=== PATIENT | male | born 1995 | race Caucasian/White ===

== ENCOUNTER 2024-10-09 20:07 | Inpatient (IN) | payer MEDICAID ==
[~2024-10-09] VITALS: Ht 190.5 cm; Wt 108.0 kg
[2024-10-09 20:34] LABS: BASOPHILS # (AUTO) 0.1 X10'3 (0-0.2); BASOPHILS % (AUTO) 0.9 % (0-1); EOSINOPHILS # (AUTO) 0.2 X10'3 (0-0.9); EOSINOPHILS % (AUTO) 1.5 % (0-6); HEMATOCRIT 25.2 % (42.0-52.0); HEMOGLOBIN 8.4 g/dl (14.0-17.9); LYMPHOCYTES # (AUTO) 0.8 X10'3 (1.1-4.8); LYMPHOCYTES % (AUTO) 7.4 % (21-51); MEAN CORPUSCULAR HEMOGLOBIN 28.4 PG (27.0-31.0); MEAN CORPUSCULAR HGB CONC 33.2 g/dL (33.0-36.5); MEAN CORPUSCULAR VOLUME 85.6 FL (78-98); MEAN PLATELET VOLUME 8.5 FL (7.4-10.4); MONOCYTES # (AUTO) 0.6 X10'3 (0-0.9); MONOCYTES % (AUTO) 5.9 % (2-12); NEUTROPHILS # (AUTO) 8.5 X10'3 (1.8-7.7); NEUTROPHILS % (AUTO) 84.3 % (42-75); PLATELET COUNT 260 X10'3 (140-440); RED BLOOD COUNT 2.95 X10'6 (4.70-6.10); RED CELL DISTRIBUTION WIDTH 17.3 % (11.5-14.5); WHITE BLOOD COUNT 10.1 X10'3 (4.5-11.0)
[2024-10-09 20:46] LABS: APTT 31 SECONDS (22-32); INR 1.2 INR; PROTHROMBIN TIME 12.2 SECONDS (9.0-12.0)
[2024-10-09 20:56] LABS: ALANINE AMINOTRANSFERASE 21 U/L (12-78); ALBUMIN 2.5 G/DL (3.4-5.0); ALBUMIN/GLOBULIN RATIO 0.6 (1.1-1.5); ALKALINE PHOSPHATASE 81 IU/L (46-116); ANION GAP 19 (8-16); ASPARTATE AMINO TRANSFERASE 11 U/L (10-37); BILIRUBIN,TOTAL 0.7 MG/DL (0.1-1.0); CALCIUM 9.1 MG/DL (8.5-10.1); CHLORIDE 97 MMOL/L (99-107); GLUCOSE 83 MG/DL (70-104); MAGNESIUM 2.1 MG/DL (1.5-2.4); SODIUM 137 MMOL/L (135-145); TOTAL CARBON DIOXIDE 21.2 MMOL/L (24-32); TOTAL PROTEIN 6.7 G/DL (6.4-8.2)
[2024-10-09] MEDS: dextrose 50%-water 50ml dispensing syringe IV ONE (21:06)
[2024-10-09] MEDS: calcium chloride 100 MG/1 ML inj IV ONE (21:06)
[2024-10-09] MEDS: insulin regular, human 10 units/0.1 ml syringe IV ONE (21:10)
[2024-10-09] MEDS: SODIUM ZIRCONIUM CYCLOSILICATE 10 GM POWD.PACK PO SCH (21:15)
[2024-10-09 21:17] LABS: POTASSIUM 6.2 MMOL/L (3.5-5.1)
[2024-10-09] MEDS: furosemide 40mg/4ml inj IV SCH (21:21)
[2024-10-09 21:34] LABS: BLOOD UREA NITROGEN 180 MG/DL (7-18); CREATININE 20.04 MG/DL (0.60-1.10); eCRCL 6 ML/MIN; eGFR 3 ML/MIN
[2024-10-09 21:50] LABS: PRO BRAIN NATRIURETIC PEPTIDE > 30000 PG/ML (0-125)
[2024-10-09 22:26] VITALS: PULSE 126; RESP 16; O2SAT 100
[2024-10-09] MEDS: albuterol 2.5 MG/3 ML nebule NEB ONE (22:26)
[2024-10-09 22:44] VITALS: PULSE 126; RESP 20; O2SAT 100
[2024-10-09] MEDS ORDERED: acetaminophen 325mg tablet PO PRN (23:05)
[2024-10-09] MEDS: heparin 1,000 units/ml 10ml inj IV ONE (23:34)
[2024-10-09] MEDS: heparin 1,000unit/ml 10ml vial 10 ML IV ONE (23:34)
[2024-10-09] MEDS: labetalol 100mg tablet PO STA (23:50)
[2024-10-10] VITALS (18 sets, daily range): BP systolic 135–210; BP diastolic 69–128; PULSE 106–123; RESP 12–31; TEMP 97.5–99.1; O2SAT 93–100
[2024-10-10] MEDS ORDERED: HYDR25TA90 PO ×2 (00:01)
[2024-10-10] MEDS ORDERED: LOSA-415 PO (00:06)
[2024-10-10] MEDS ORDERED: NIFE-128 PO (00:06)
[2024-10-10] MEDS ORDERED: CALC667T8 PO (00:06)
[2024-10-10] MEDS ORDERED: LABE100T8 PO (00:06)
[2024-10-10] MEDS ORDERED: CALC0.2536 PO (00:06)
[2024-10-10] MEDS ORDERED: CLON1PAT41 (00:07)
[2024-10-10] MEDS: labetalol 20mg/4ml (5mg/ml) syringe IV ONE (01:54)
[2024-10-10] MEDS: LIDOcaine 1% (10mg/ml) 2ml vial SQ ONE (04:56)
[2024-10-10] MEDS: heparin 1,000unit/ml 10ml vial 10 ML IV ONE (07:20)
[2024-10-10] MEDS: heparin 1,000 units/ml 10ml inj IV ONE (07:23)
[2024-10-10] MEDS ORDERED: labetalol 100mg tablet PO SCH (08:00)
[2024-10-10] MEDS: heparin, porcine 5000 units/ml vial SQ SCH (09:01)
[2024-10-10] MEDS: nicotine 14mg patch - 24hr TD SCH (09:02)
[2024-10-10 11:34] LABS: ALANINE AMINOTRANSFERASE 16 U/L (12-78); ALBUMIN 2.2 G/DL (3.4-5.0); ALBUMIN/GLOBULIN RATIO 0.6 (1.1-1.5); ALKALINE PHOSPHATASE 71 IU/L (46-116); ANION GAP 14 (8-16); ASPARTATE AMINO TRANSFERASE 9 U/L (10-37); BILIRUBIN,TOTAL 0.9 MG/DL (0.1-1.0); BLOOD UREA NITROGEN 110 MG/DL (7-18); BUN/CREATININE RATIO 7.9 (10.0-20.0); CALCIUM 8.8 MG/DL (8.5-10.1); CHLORIDE 100 MMOL/L (99-107); CREATININE 13.98 MG/DL (0.60-1.10); GLUCOSE 115 MG/DL (70-104); MAGNESIUM 1.9 MG/DL (1.5-2.4); PHOSPHORUS 6.9 MG/DL (2.3-4.5); POTASSIUM 4.6 MMOL/L (3.5-5.1); SODIUM 137 MMOL/L (135-145); TOTAL CARBON DIOXIDE 23.1 MMOL/L (24-32); eCRCL 9 ML/MIN; eGFR 4 ML/MIN
[2024-10-10 11:50] LABS: % IRON SATURATION 20 % (11-46); IRON 34 UG/DL (53-167); TOTAL IRON BINDING CAPACITY 170 UG/DL (259-388)
[2024-10-10 12:24] LABS: BASOPHILS # (AUTO) 0.1 X10'3 (0-0.2); EOSINOPHILS # (AUTO) 0.2 X10'3 (0-0.9); EOSINOPHILS % (AUTO) 2.8 % (0-6); LYMPHOCYTES # (AUTO) 0.7 X10'3 (1.1-4.8); LYMPHOCYTES % (AUTO) 9.9 % (21-51); MEAN CORPUSCULAR HEMOGLOBIN 28.2 PG (27.0-31.0); MEAN CORPUSCULAR VOLUME 85.6 FL (78-98); MEAN PLATELET VOLUME 8.1 FL (7.4-10.4); MONOCYTES # (AUTO) 0.4 X10'3 (0-0.9); MONOCYTES % (AUTO) 6.1 % (2-12); NEUTROPHILS # (AUTO) 5.3 X10'3 (1.8-7.7); NEUTROPHILS % (AUTO) 80.2 % (42-75); PLATELET COUNT 217 X10'3 (140-440); RED BLOOD COUNT 2.45 X10'6 (4.70-6.10); RED CELL DISTRIBUTION WIDTH 17.5 % (11.5-14.5); WHITE BLOOD COUNT 6.6 X10'3 (4.5-11.0)
[2024-10-10 12:35] LABS: HEMATOCRIT 20.9 % (42.0-52.0); HEMOGLOBIN 6.9 g/dl (14.0-17.9)
[2024-10-10] MEDS: ondansetron/PF 4mg/2ml inj IV PRN (13:57)
[2024-10-10] MEDS: NUT.TX.IMP.RENAL FXN,LAC-REDUC (Nepro) 237 ML VANILLA PO SCH (17:41)
[2024-10-10] MEDS: hydrALAZINE 20mg/ml inj. IV PRN (18:47)
[2024-10-11] VITALS (12 sets, daily range): BP systolic 115–185; BP diastolic 57–114; PULSE 98–110; RESP 16–27; TEMP 97.5–98.5; O2SAT 95–100
[2024-10-11] MEDS: labetalol 100mg tablet PO ONE (00:33)
[2024-10-11] MEDS: HALLS - SOOTHE MENTHOL 1.8 MG cough drop LOZENGE MM PRN (00:59)
[2024-10-11 07:48] LABS: BASOPHILS # (AUTO) 0.1 X10'3 (0-0.2); BASOPHILS % (AUTO) 0.8 % (0-1); EOSINOPHILS # (AUTO) 0.2 X10'3 (0-0.9); EOSINOPHILS % (AUTO) 2.3 % (0-6); LYMPHOCYTES # (AUTO) 0.8 X10'3 (1.1-4.8); LYMPHOCYTES % (AUTO) 11.2 % (21-51); MEAN CORPUSCULAR HEMOGLOBIN 28.5 PG (27.0-31.0); MEAN CORPUSCULAR HGB CONC 33.3 g/dL (33.0-36.5); MEAN CORPUSCULAR VOLUME 85.4 FL (78-98); MEAN PLATELET VOLUME 8.8 FL (7.4-10.4); MONOCYTES # (AUTO) 0.5 X10'3 (0-0.9); MONOCYTES % (AUTO) 6.5 % (2-12); NEUTROPHILS # (AUTO) 5.7 X10'3 (1.8-7.7); NEUTROPHILS % (AUTO) 79.2 % (42-75); PLATELET COUNT 230 X10'3 (140-440); RED CELL DISTRIBUTION WIDTH 17.5 % (11.5-14.5); WHITE BLOOD COUNT 7.2 X10'3 (4.5-11.0)
[2024-10-11] MEDS ORDERED: albumin (human) 25% 100ml IV 100 ML IV PRN (08:00)
[2024-10-11 08:06] LABS: ALANINE AMINOTRANSFERASE 14 U/L (12-78); ALBUMIN 2.2 G/DL (3.4-5.0); ALBUMIN/GLOBULIN RATIO 0.6 (1.1-1.5); ALKALINE PHOSPHATASE 65 IU/L (46-116); ANION GAP 15 (8-16); ASPARTATE AMINO TRANSFERASE 16 U/L (10-37); BILIRUBIN,TOTAL 0.9 MG/DL (0.1-1.0); BLOOD UREA NITROGEN 117 MG/DL (7-18); BUN/CREATININE RATIO 7.7 (10.0-20.0); CALCIUM 8.3 MG/DL (8.5-10.1); CHLORIDE 99 MMOL/L (99-107); CREATININE 15.11 MG/DL (0.60-1.10); GLUCOSE 95 MG/DL (70-104); MAGNESIUM 1.8 MG/DL (1.5-2.4); PHOSPHORUS 8.4 MG/DL (2.3-4.5); POTASSIUM 5.3 MMOL/L (3.5-5.1); SODIUM 136 MMOL/L (135-145); TOTAL CARBON DIOXIDE 21.7 MMOL/L (24-32); TOTAL PROTEIN 5.8 G/DL (6.4-8.2); eCRCL 9 ML/MIN; eGFR 4 ML/MIN
[2024-10-11 08:17] LABS: HEMATOCRIT 20.4 % (42.0-52.0); HEMOGLOBIN 6.8 g/dl (14.0-17.9)
[2024-10-11] MEDS: NIFEdipine XL 30mg tablet PO SCH (08:22)
[2024-10-11] MEDS: labetalol 100mg tablet PO SCH (08:23)
[2024-10-11] MEDS: LIDOcaine 1% (10mg/ml) 2ml vial SQ ONE ×2 (13:30)
[2024-10-11] MEDS: heparin 1,000unit/ml 10ml vial 10 ML IV ONE (14:11)
[2024-10-11] MEDS: heparin 1,000 units/ml 10ml inj IV ONE (14:12)
[2024-10-11] MEDS: EPOETIN ALFA-EPBX 20,000 UNIT/ML 1 ML MDV IV ONE (14:13)
[2024-10-12] VITALS (7 sets, daily range): BP systolic 118–150; BP diastolic 70–95; PULSE 71–105; RESP 16–20; TEMP 97.6–98.3; O2SAT 97–100
[2024-10-12 05:28] LABS: HBSAG SCREEN Negative (Negative)
[2024-10-12 07:18] LABS: BASOPHILS # (AUTO) 0.1 X10'3 (0-0.2); EOSINOPHILS # (AUTO) 0.2 X10'3 (0-0.9); EOSINOPHILS % (AUTO) 2.1 % (0-6); HEMATOCRIT 23.4 % (42.0-52.0); HEMOGLOBIN 7.7 g/dl (14.0-17.9); LYMPHOCYTES # (AUTO) 0.9 X10'3 (1.1-4.8); LYMPHOCYTES % (AUTO) 11.5 % (21-51); MEAN CORPUSCULAR HEMOGLOBIN 28.4 PG (27.0-31.0); MEAN CORPUSCULAR VOLUME 86.2 FL (78-98); MEAN PLATELET VOLUME 8.7 FL (7.4-10.4); MONOCYTES # (AUTO) 0.5 X10'3 (0-0.9); NEUTROPHILS % (AUTO) 78.4 % (42-75); PLATELET COUNT 234 X10'3 (140-440); RED BLOOD COUNT 2.72 X10'6 (4.70-6.10); RED CELL DISTRIBUTION WIDTH 17.7 % (11.5-14.5); WHITE BLOOD COUNT 7.7 X10'3 (4.5-11.0)
[2024-10-12 08:04] LABS: ALANINE AMINOTRANSFERASE 13 U/L (12-78); ALBUMIN/GLOBULIN RATIO 0.5 (1.1-1.5); ALKALINE PHOSPHATASE 64 IU/L (46-116); ANION GAP 12 (8-16); ASPARTATE AMINO TRANSFERASE 16 U/L (10-37); BILIRUBIN,TOTAL 0.7 MG/DL (0.1-1.0); BLOOD UREA NITROGEN 80 MG/DL (7-18); BUN/CREATININE RATIO 7.1 (10.0-20.0); CALCIUM 8.1 MG/DL (8.5-10.1); CHLORIDE 101 MMOL/L (99-107); CREATININE 11.22 MG/DL (0.60-1.10); GLUCOSE 107 MG/DL (70-104); MAGNESIUM 1.8 MG/DL (1.5-2.4); PHOSPHORUS 7.1 MG/DL (2.3-4.5); POTASSIUM 5.1 MMOL/L (3.5-5.1); SODIUM 137 MMOL/L (135-145); TOTAL CARBON DIOXIDE 24.1 MMOL/L (24-32); TOTAL PROTEIN 5.7 G/DL (6.4-8.2); eCRCL 12 ML/MIN; eGFR 5 ML/MIN
[2024-10-13] VITALS (25 sets, daily range): BP systolic 114–145; BP diastolic 67–94; PULSE 0–105; RESP 15–26; TEMP 97.5–99.8; O2SAT 95–100
[2024-10-13 07:27] LABS: BASOPHILS # (AUTO) 0.1 X10'3 (0-0.2); EOSINOPHILS # (AUTO) 0.2 X10'3 (0-0.9); EOSINOPHILS % (AUTO) 2.9 % (0-6); HEMOGLOBIN 7.6 g/dl (14.0-17.9); LYMPHOCYTES # (AUTO) 0.8 X10'3 (1.1-4.8); LYMPHOCYTES % (AUTO) 11.1 % (21-51); MEAN CORPUSCULAR HEMOGLOBIN 28.7 PG (27.0-31.0); MEAN CORPUSCULAR HGB CONC 33.2 g/dL (33.0-36.5); MEAN CORPUSCULAR VOLUME 86.5 FL (78-98); MEAN PLATELET VOLUME 8.7 FL (7.4-10.4); MONOCYTES # (AUTO) 0.5 X10'3 (0-0.9); MONOCYTES % (AUTO) 6.5 % (2-12); NEUTROPHILS # (AUTO) 5.7 X10'3 (1.8-7.7); NEUTROPHILS % (AUTO) 78.5 % (42-75); PLATELET COUNT 247 X10'3 (140-440); RED BLOOD COUNT 2.65 X10'6 (4.70-6.10); RED CELL DISTRIBUTION WIDTH 17.4 % (11.5-14.5); WHITE BLOOD COUNT 7.3 X10'3 (4.5-11.0)
[2024-10-13 08:25] LABS: ALANINE AMINOTRANSFERASE 15 U/L (12-78); ALBUMIN 2.1 G/DL (3.4-5.0); ALBUMIN/GLOBULIN RATIO 0.6 (1.1-1.5); ALKALINE PHOSPHATASE 64 IU/L (46-116); ANION GAP 17 (8-16); ASPARTATE AMINO TRANSFERASE 14 U/L (10-37); BILIRUBIN,TOTAL 0.8 MG/DL (0.1-1.0); BLOOD UREA NITROGEN 86 MG/DL (7-18); BUN/CREATININE RATIO 7.1 (10.0-20.0); CALCIUM 8.2 MG/DL (8.5-10.1); CHLORIDE 99 MMOL/L (99-107); CREATININE 12.18 MG/DL (0.60-1.10); GLUCOSE 94 MG/DL (70-104); MAGNESIUM 1.8 MG/DL (1.5-2.4); PHOSPHORUS 7.8 MG/DL (2.3-4.5); POTASSIUM 5.2 MMOL/L (3.5-5.1); SODIUM 137 MMOL/L (135-145); TOTAL CARBON DIOXIDE 21.1 MMOL/L (24-32); TOTAL PROTEIN 5.8 G/DL (6.4-8.2); eCRCL 11 ML/MIN; eGFR 5 ML/MIN
[2024-10-13] MEDS: LIDOcaine 1% (10mg/ml) 2ml vial SQ ONE (09:54)
[2024-10-13] MEDS: heparin 1,000unit/ml 10ml vial 10 ML IV ONE (09:55)
[2024-10-13] MEDS: heparin 1,000 units/ml 10ml inj IV ONE (09:55)
[2024-10-13] MEDS: EPOETIN ALFA-EPBX 20,000 UNIT/ML 1 ML MDV IV ONE (09:56)
[2024-10-13] MEDS ORDERED: acetaminophen 325mg tablet PO PRN (12:25)
[2024-10-14] VITALS (8 sets, daily range): BP systolic 128–137; BP diastolic 75–90; PULSE 101–104; RESP 16–23; TEMP 97.1–98.9; O2SAT 97–100
[2024-10-14 07:34] LABS: BASOPHILS # (AUTO) 0.1 X10'3 (0-0.2); BASOPHILS % (AUTO) 0.8 % (0-1); EOSINOPHILS # (AUTO) 0.1 X10'3 (0-0.9); EOSINOPHILS % (AUTO) 1.5 % (0-6); HEMATOCRIT 22.5 % (42.0-52.0); LYMPHOCYTES # (AUTO) 0.8 X10'3 (1.1-4.8); LYMPHOCYTES % (AUTO) 10.9 % (21-51); MEAN CORPUSCULAR HEMOGLOBIN 28.7 PG (27.0-31.0); MEAN CORPUSCULAR HGB CONC 33.3 g/dL (33.0-36.5); MEAN CORPUSCULAR VOLUME 86.2 FL (78-98); MEAN PLATELET VOLUME 8.7 FL (7.4-10.4); MONOCYTES # (AUTO) 0.6 X10'3 (0-0.9); MONOCYTES % (AUTO) 8.1 % (2-12); NEUTROPHILS % (AUTO) 78.7 % (42-75); PLATELET COUNT 248 X10'3 (140-440); RED BLOOD COUNT 2.61 X10'6 (4.70-6.10); RED CELL DISTRIBUTION WIDTH 17.5 % (11.5-14.5); WHITE BLOOD COUNT 7.6 X10'3 (4.5-11.0)
[2024-10-14 07:52] LABS: HEMOGLOBIN 7.5 g/dl (14.0-17.9)
[2024-10-14 07:53] LABS: ALBUMIN 1.9 G/DL (3.4-5.0); ALBUMIN/GLOBULIN RATIO 0.5 (1.1-1.5); ANION GAP 12 (8-16); ASPARTATE AMINO TRANSFERASE 22 U/L (10-37); BILIRUBIN,TOTAL 0.8 MG/DL (0.1-1.0); BLOOD UREA NITROGEN 58 MG/DL (7-18); BUN/CREATININE RATIO 6.4 (10.0-20.0); CALCIUM 8.2 MG/DL (8.5-10.1); CHLORIDE 100 MMOL/L (99-107); CREATININE 9.04 MG/DL (0.60-1.10); GLUCOSE 92 MG/DL (70-104); MAGNESIUM 1.8 MG/DL (1.5-2.4); PHOSPHORUS 6.4 MG/DL (2.3-4.5); POTASSIUM 4.6 MMOL/L (3.5-5.1); SODIUM 136 MMOL/L (135-145); TOTAL CARBON DIOXIDE 24.2 MMOL/L (24-32); TOTAL PROTEIN 5.5 G/DL (6.4-8.2); eCRCL 14 ML/MIN; eGFR 7 ML/MIN
[2024-10-14 07:54] LABS: ALANINE AMINOTRANSFERASE 18 U/L (12-78); ALKALINE PHOSPHATASE 63 IU/L (46-116)
[2024-10-15] VITALS (9 sets, daily range): BP systolic 121–144; BP diastolic 70–89; PULSE 94–102; RESP 13–20; TEMP 97.1–98.7; O2SAT 95–100
[2024-10-15] MEDS: LIDOcaine 1% (10mg/ml) 2ml vial SQ ONE (10:16)
[2024-10-15] MEDS: EPOETIN ALFA-EPBX 20,000 UNIT/ML 1 ML MDV IV ONE (11:09)
[2024-10-15] MEDS: heparin 1,000unit/ml 10ml vial 10 ML IV ONE (12:36)
[2024-10-15] MEDS: heparin 1,000 units/ml 10ml inj IV ONE (12:37)
[2024-10-15] MEDS ORDERED: LABE100T8 PO (14:13)
== END 2024-10-15 15:13 | disposition home or self-care (01) | DRG 425 ==
LOC: ER 20:08 → ED HOLD 23:07 → PCU 3S 10-10 00:30
PROVIDERS: ADMIT Internal Medicine Sleep Medicine; ATTEND Internal Medicine
PROC: 5A1D70Z Performance of Urinary Filtration, Intermittent, Less than 6 Hours Per Day (ICD-10-PCS; 2024-10-09)
PROC: 30233N1 Transfusion of Nonautologous Red Blood Cells into Peripheral Vein, Percutaneous Approach (ICD-10-PCS; principal; 2024-10-11)
PROC: 5A1D70Z Performance of Urinary Filtration, Intermittent, Less than 6 Hours Per Day (ICD-10-PCS; 2024-10-11)
PROC: 5A1D70Z Performance of Urinary Filtration, Intermittent, Less than 6 Hours Per Day (ICD-10-PCS; 2024-10-13)
PROC: 5A1D70Z Performance of Urinary Filtration, Intermittent, Less than 6 Hours Per Day (ICD-10-PCS; 2024-10-15)
DX: E87.70 Fluid overload, unspecified (principal); I21.A1 Myocardial infarction type 2; E87.20 Acidosis, unspecified; E83.39 Other disorders of phosphorus metabolism; I12.0 Hypertensive chronic kidney disease with stage 5 chronic kidney disease or end stage renal disease; D63.1 Anemia in chronic kidney disease; N18.6 End stage renal disease; F17.210 Nicotine dependence, cigarettes, uncomplicated; D50.8 Other iron deficiency anemias; E87.5 Hyperkalemia; I16.9 Hypertensive crisis, unspecified; Z99.2 Dependence on renal dialysis
CPT/HCPCS: 36415; 36430; 71045; 80053; 82948; 83540; 83550; 83735; 83880; 84100; 84484; 85025; 85610; 85730; 86704; 86706; 86870; 86885; 86900; 86901; 86902; 86905; 86920; 86922; 87081; 87340; 93005; 93306; 94640; 94760; 99291; A4615; A6449; E1594; G0257; G0378; J0360; J1644; J1815; J1940; J2003; J2405; J3490; J7030; J7040; P9016; Q4081